=== PATIENT | female | born 1990 | race Caucasian/White ===

== ENCOUNTER 2023-11-26 09:58 | Inpatient (IN) | payer OTHER ==
[2023-11-26] MEDS ORDERED: Promethazine HCl 25 MG/ML VIAL IM PRN (10:01)
[2023-11-26] MEDS ORDERED: HYDROcodone/Acetaminophen 5/325 mg Tablet PO PRN ×2 (10:01)
[2023-11-26] MEDS ORDERED: hydrALAZINE 20 MG/ML VIAL SLOW IVP PRN ×2 (10:01→14:47)
[2023-11-26] MEDS ORDERED: Docusate 100 MG CAP PO PRN (10:01)
[2023-11-26] MEDS ORDERED: Carboprost 250 MCG/ML AMP IM PRN (10:01)
[2023-11-26] MEDS ORDERED: Misoprostol 200 MCG TAB PR PRN (10:01)
[2023-11-26] MEDS ORDERED: Methylergonovine 0.2 MG/ML VIAL IM PRN (10:01)
[2023-11-26] MEDS ORDERED: Ondansetron PF 4 MG/2 ML Vial IVP PRN ×2 (10:01→14:47)
[2023-11-26] MEDS ORDERED: Acetaminophen 500 MG TAB PO PRN (10:01)
[2023-11-26] MEDS ORDERED: Diphenoxylate HCl/Atropine Tablet PO PRN ×2 (10:01)
[2023-11-26] MEDS ORDERED: Lactated Ringer's 1,000 ML IV SCH (10:15)
[2023-11-26] MEDS ORDERED: Oxytocin 30 units/NS 500 ML 500 ML IV SCH ×4 (10:15→15:00)
[2023-11-26 11:10] VITALS: BMI 39.9
[2023-11-26] MEDS: Penicillin G Potassium 5 MILL.UNITS in Sodium Chloride 0.9% 100 ML IVPB SCH (11:11)
[2023-11-26 11:49] LABS: Syphilis Antibody Nonreactive (Nonreactive); Syphilis Antibody Index 0.05 S/CO (<1.00 Non-Reactive)
[2023-11-26 11:51] LABS: HBsAg Index 0.18 S/CO (0-0.99); HIV (1/2) Antibody/Antigen Non-Reactive (NonReactive); HIV 1/2 INDEX 0.07 S/CO (<1.00); Hep B Surf Ag - L&D Non-Reactive S/CO (NonReactive)
[2023-11-26] MEDS: fentaNYL 50 mcg/mL 1 mL Vial SLOW IVP PRN (11:55)
[2023-11-26 12:26] LABS: Hematocrit 35.8 % (34.9-44.5); Hemoglobin 12.7 g/dL (12.0-15.5); Mean Corpuscular HGB CONC 35.5 g/dL (32.0-36.0); Mean Corpuscular Volume 84.4 fL (81.6-98.3); Platelet Count 42 10x3/uL (150-450); RBC Distribution Width 13.2 % (11.5-14.5); Red Blood Cell (RBC) Count 4.24 10x6/uL (3.90-5.03); White Blood Cell (WBC) Count 10.2 10x3/uL (3.5-10.5)
[2023-11-26] MEDS ORDERED: Penicillin G 2.5 MILL.units 2.5 MILL.UNITS in Premix 1 BAG IVPB SCH (14:00)
[2023-11-26] MEDS: Lidocaine 1% (PF) 30 ML VIAL SC PRN (14:20)
[2023-11-26 14:29] LABS: ALT (SGPT) 10 U/L (8-55); AST (SGOT) 16 U/L (5-34); Albumin 2.8 g/dL (3.5-5.0); Alkaline Phosphatase 188 U/L (40-110); Anion Gap 19 mmol/L (10-20); BUN (Urea Nitrogen) 6 mg/dL (7.0-18.7); Bilirubin, Total 0.4 mg/dL (0.2-1.2); Calc. Creatinine Clearance 197 mL/min (70-130); Calcium 9.8 mg/dL (7.8-10.44); Carbon Dioxide 18 mmol/L (22-29); Chloride 104 mmol/L (98-107); Estimated GFR 120; Globulin 3.8 g/dL (2.4-3.5); Glucose 84 mg/dL (70-105); Potassium 3.8 mmol/L (3.5-5.1); Protein, Total 6.6 g/dL (6.0-8.3); Sodium 137 mmol/L (136-145)
[2023-11-26] MEDS ORDERED: Boostrix 0.5 ML (Tdap) VIAL (>/=7 yrs of age) IM ONE (14:47)
[2023-11-26] MEDS ORDERED: Bisacodyl 10 MG SUPP PR PRN (14:47)
[2023-11-26] MEDS ORDERED: Misoprostol 200 MCG TAB VAG PRN (14:47)
[2023-11-26] MEDS ORDERED: Zolpidem Tartrate 5 MG TAB PO PRN (14:47)
[2023-11-26] MEDS ORDERED: Lanolin Ointment 7 GM TUBE TOP PRN (14:47)
[2023-11-26] MEDS ORDERED: Milk Of Magnesia 30 ML UDCUP PO PRN (14:47)
[2023-11-26] MEDS ORDERED: Benzocaine-Menthol 82.5 ML CAN TOP PRN (14:47)
[2023-11-26] MEDS ORDERED: diphenhydrAMINE 25 MG CAP PO PRN (14:47)
[2023-11-26] MEDS ORDERED: Preparation H Ointment 28 GM TUBE PR PRN (14:47)
[2023-11-26] MEDS: Ibuprofen 800 MG TAB PO PRN (15:04)
[2023-11-26] MEDS: HYDROcodone/Acetaminophen 5/325 mg Tablet PO PRN (19:52)
[2023-11-26 20:19] LABS: Uric Acid 6.3 mg/dL (2.6-6.0)
[2023-11-26] MEDS: fentaNYL/Ropivacaine Epidural 0 ML ONE (21:32)
[2023-11-26] MEDS: Ferrous Sulfate 325 MG TAB PO SCH (21:34)
[2023-11-26] MEDS: Lidocaine 1% (PF) 30 ML VIAL ONE (21:34)
[2023-11-27 04:01] LABS: Hematocrit 30.6 % (34.9-44.5); Hemoglobin 10.7 g/dL (12.0-15.5); Mean Corpuscular Hemoglobin 29.5 pg (27.0-33.0); Mean Corpuscular Volume 84.3 fL (81.6-98.3); Platelet Count 52 10x3/uL (150-450); RBC Distribution Width 13.3 % (11.5-14.5); Red Blood Cell (RBC) Count 3.63 10x6/uL (3.90-5.03); White Blood Cell (WBC) Count 12.3 10x3/uL (3.5-10.5)
[2023-11-27] MEDS: Ibuprofen 800 MG TAB PO SCH (04:55)
[2023-11-27] MEDS: Docusate 100 MG CAP PO SCH (04:55)
[2023-11-27] MEDS: HYDROcodone/Acetaminophen 5/325 mg Tablet PO PRN (05:03)
[2023-11-27] MEDS: Prenatal Vitamin 1 TAB PO SCH (08:15)
[2023-11-27] MEDS ORDERED: Witch Hazel-Glycerin 1 EACH JAR TOP PRN (13:32)
[2023-11-28 07:45] VITALS: BP 119/89; TEMP 98
== END 2023-11-28 17:48 | disposition home or self-care (01) | DRG 806 ==
LOC: CSHLD 09:58 → CSHPED 20:03
PROVIDERS: ADMIT Obstetrics & Gynecology; ATTEND Obstetrics & Gynecology
PROC: 10E0XZZ Delivery of Products of Conception, External Approach (ICD-10-PCS; principal; 2023-11-26)
PROC: 0HQ9XZZ Repair Perineum Skin, External Approach (ICD-10-PCS; 2023-11-26)
PROC: 10907ZC Drainage of Amniotic Fluid, Therapeutic from Products of Conception, Via Natural or Artificial Opening (ICD-10-PCS; 2023-11-26)
DX: O99.12 Other diseases of the blood and blood-forming organs and certain disorders involving the immune mechanism complicating childbirth (principal); D69.3 Immune thrombocytopenic purpura; Z37.0 Single live birth; O70.0 First degree perineal laceration during delivery; Z3A.38 38 weeks gestation of pregnancy; O99.824 Streptococcus B carrier state complicating childbirth
CPT/HCPCS: 36415; 80053; 84550; 85027; 86780; 86850; 86900; 86901; 87340; 87389; 99285; J2001; J2540; J3010; J3490